=== PATIENT | female | born 1965 | race Caucasian/White ===

== ENCOUNTER 2024-05-22 10:48 | Emergency (ER) | payer MEDICARE, SELFPAY ==
[2024-05-22] VITALS (20 sets, daily range): BP systolic 97–143; BP diastolic 75–85; PULSE 92–108; TEMP 37; O2SAT 73–99; BMI 27.2
--- NOTE | 2024-05-22 11:07 | ED.CHESTPAI1 ---
HPI - Chest Pain General Chief Complaint: Chest Pain Stated Complaint: CHEST PAIN Time Seen by Provider: 05/22/24 10:57 Source: patient Mode of arrival: walk-in Limitations: no limitations History of Present Illness HPI narrative: This patient is here complaining of discomfort in her chest. She is a good historian. She is visiting this area but was planning on returning to [facility] today with her family. She has been having what she calls sharp stabbing chest discomfort today starting at 9:00. She says it lasts a few seconds to a few minutes and that goes away on its own. She said 2 episodes today. First episode occurred while she was waking up in bed. She has also had several of these spells over the last several days. In fact she went and saw her primary care doctor who wants her to get the Holter monitor. Risk factors are negative for hypertension diabetes or elevation of her cholesterol. She has not had previous cardiovascular disease. 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 She has had 7 surgical procedures including gamma knife. She has been doing very well in that regard. She also received chemotherapy this last past summer and radiation therapy this summer as well. She does not have any headache or fever or shakes or chills no influenza type symptoms. She does have heavy use of tobacco products and has not been able to quit. Incidentally with the lung cancer they said they have never been able to find the cancer in her lungs but when they did biopsy of her brain it was indeed a lung cancer that metastasized to her brain. She has not had any purulent sputum or bloody sputum. She has not had syncopal episodes. The sharp stabbing episodes are always self-limiting and they are never sustained with heaviness or pressure rating up to the neck jaw and arm all this is negative. Related Data Home Medications ?Medication ?Instructions ?Recorded ?Confirmed furosemide 20 mg tablet (Lasix) 20 mg PO DAILY 05/22/24 05/22/24 oxycodone 20 mg tablet 20 mg PO Q3H PRN pain 05/22/24 05/22/24 prednisone 1 mg tablet 1 mg PO DAILY 05/22/24 05/22/24 Allergies Allergy/AdvReac Type Severity Reaction Status Date / Time Penicillins Allergy Mild Rash Verified 05/22/24 10:54 gabapentin AdvReac Mild muscle Verified 05/22/24 10:54 jerking levofloxacin [From Levaquin] AdvReac Mild cramps Verified 05/22/24 10:54 PFSH PFSH Social History Little interest or pleasure in doing things: not at all Feeling down, depressed, or hopeless: not at all Exam Narrative Exam Narrative: This patient is awake alert here with several other women I believe. She does not extremis. She is not toxic or anxious in appearance. Her pulse oximetry is 93%. Cognition and mentation are normal she is a very pleasant and good historian. Her lungs were completely clear with no wheeze rales or rhonchi. There is no pleural or pericardial rub. She did have prolonged exhalation. Heart sounds are normal with no S3-S4 or murmur. She has no carotid bruits. Her extremities do not show any evidence of failure. There is no edema there is no cellulitis no swelling or tenderness. Rest examination is unremarkable. Constitutional Vital Signs, click to edit/add: Last Vital Signs Temp 98.6 F 05/22/24 10:54 Pulse 102 H 05/22/24 13:40 Resp 19 05/22/24 13:40 BP 104/75 05/22/24 13:30 Pulse Ox 93 L 05/22/24 13:40 O2 Del Method Room Air 05/22/24 10:54 Course Vital Signs Vital signs: Vital Signs Temperature 98.6 F 05/22/24 10:54 Pulse Rate 95 H 05/22/24 10:54 Respiratory Rate 18 05/22/24 10:54 Blood Pressure 113/79 05/22/24 10:54 Pulse Oximetry 98 05/22/24 10:54 Oxygen Delivery Method Room Air 05/22/24 10:54 Temperature 98.6 F 05/22/24 10:54 Pulse Rate 102 H 05/22/24 13:40 Respiratory Rate 19 05/22/24 13:40 Blood Pressure 104/75 05/22/24 13:30 Pulse Oximetry 93 L 05/22/24 13:40 Oxygen Delivery Method Room Air 05/22/24 10:54 MDM - Chest Pain MDM Narrative Medical decision making narrative: 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 She has brief sharp stabbing episodes of discomfort. No real risk factors for coronary disease except tobacco usage. She has 2 negative troponins. Her EKG is unremarkable. Not surprisingly in lieu of her history, her D-dimer is elevated so as a precaution we did a CTA of her chest. It is negative for any acute findings per the radiologist. It is consistent with emphysema. I believe she should follow-up with her primary care doctor I do not believe she has an acute coronary syndrome. No evidence of arrhythmia today but that should be ruled out. Lab Data Labs: Lab Results 05/22/24 05/22/24 Range/Units 11:16 12:57 WBC 8.9 (4.0-11.0) 10^3/uL RBC 3.66 L (4.20-5.40) 10^6/uL Hgb 11.4 L (12.0-16.0) g/dL Hct 36.6 (36.0-48.0) % MCV 100.0 H (81.0-99.0) fL MCH 31.1 (26.7-34.0) pg MCHC 31.1 (29.9-35.2) g/dL RDW 13.2 (11.0-15.0) % Plt Count 369 (150-450) 10^3/uL MPV 9.2 L (9.5-13.5) fL Neut % (Auto) 70.6 (43.0-75.0) % Lymph % (Auto) 16.3 L (20.5-60.0) % Jackson % (Auto) 7.5 (1.7-12.0) % Eos % (Auto) 4.6 (0.9-7.0) % Baso % (Auto) 0.9 (0.2-2.0) % Neut # (Auto) 6.3 (1.4-6.5) 10^3/uL Lymph # (Auto) 1.4 (1.2-3.8) 10^3/uL Jackson # (Auto) 0.7 (0.3-0.8) 10^3/uL Eos # (Auto) 0.4 (0.0-0.7) 10^3/uL Baso # (Auto) 0.1 (0.0-0.1) 10^3/uL Abs Immat Gran (auto) 0.01 (0.00-0.03) 10^3/uL Imm/Tot Granulo (auto) 0.1 (0.0-0.5) % D-Dimer 0.75 H* (<=0.59) mg/L FEU Sodium 137 (136-145) mmol/L Potassium 3.9 (3.5-5.1) mmol/L Chloride 102 (98-107) mmol/L Carbon Dioxide 29.2 (21.0-32.0) mmol/L Anion Gap 9.7 BUN 13.0 (7.0-18.0) mg/dL Creatinine 1.25 H (0.55-1.02) mg/dL Est GFR ( Amer) 53 L (>=60) Est GFR (Non-Af Amer) 44 L (>=60) BUN/Creatinine Ratio 10.4 Glucose 91 (74-106) mg/dL Calcium 8.9 (8.5-10.1) mg/dL Total Bilirubin 0.4 (0.2-1.0) mg/dL AST 12 L (15-37) U/L ALT 10 L (14-59) U/L Alkaline Phosphatase 124 H (46-116) U/L Troponin I High Sens <4.0 L 4.5 (4.0-51.3) pg/mL Total Protein 6.2 L (6.4-8.2) g/dL Albumin 2.4 L (3.4-5.0) g/dL Globulin 3.8 g/dL Albumin/Globulin Ratio 0.6 Discharge Plan Discharge Chief Complaint: Chest Pain Clinical Impression: Atypical chest pain Patient Disposition: Home, Self-Care Time of Disposition Decision: 14:57 Prescriptions / Home Meds: No Action oxycodone 20 mg tablet 20 mg PO Q3H PRN (Reason: pain) prednisone 1 mg tablet 1 mg PO DAILY furosemide [Lasix] 20 mg tablet 20 mg PO DAILY Print Language: [place]an Additional Instructions: Take copy of your lab EKG and CT scan and follow-up with your primary care doctor. Referrals: Physician,Non-Staff, MD [Primary Care Provider] - 1 week
--- NOTE | 2024-05-22 11:09 | XR_ITS ---
[address] [address] Patient Name: ROSALVA ARCOS MRN: [id number] date: 1965 Sex: F Assigned Patient Location: ER Current Patient Location: ER Accession/Order Number: [id number] Exam Date: 05/22/2024 11:34 Report Date: 05/22/2024 12:28 At the request of: EDNA SHELTON Procedure: XR chest 1V EXAM: XR chest 1V HISTORY: Chest pain COMPARISON: None. TECHNIQUE: Chest X-ray AP, 1 view FINDINGS: Support devices: Left jugular approach intravenous catheter terminates near the cavoatrial junction. Lungs/pleura: No consolidation, effusion, or pneumothorax. Heart and mediastinum: Normal contours. Bones: No acute abnormality identified. XR/XR chest 1V Impression: No radiographic evidence of acute cardiopulmonary process. Electronically authenticated by: LINUS WINTER Date: 05/22/2024 12:28
--- NOTE | 2024-05-22 11:09 | ECG_ITS ---
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
[2024-05-22 11:22] LABS: Basophils Absolute Auto 0.1 10^3/uL (0.0-0.1); Basophils Percent Auto 0.9 % (0.2-2.0); Eosinophils Absolute Auto 0.4 10^3/uL (0.0-0.7); Eosinophils Percent Auto 4.6 % (0.9-7.0); Hematocrit 36.6 % (36.0-48.0); Hemoglobin 11.4 g/dL (12.0-16.0); Immature Granulocytes Abs Auto 0.01 10^3/uL (0.00-0.03); Immature Granulocytes Pct Auto 0.1 % (0.0-0.5); Lymphocytes Absolute Auto 1.4 10^3/uL (1.2-3.8); Lymphocytes Percent Auto 16.3 % (20.5-60.0); Mean Corpuscular HGB Conc 31.1 g/dL (29.9-35.2); Mean Corpuscular Hemoglobin 31.1 pg (26.7-34.0); Mean Platelet Volume 9.2 fL (9.5-13.5); Monocytes Absolute Auto 0.7 10^3/uL (0.3-0.8); Monocytes Percent Auto 7.5 % (1.7-12.0); Neutrophils Absolute Auto 6.3 10^3/uL (1.4-6.5); Neutrophils Percent Auto 70.6 % (43.0-75.0); Platelet Count 369 10^3/uL (150-450); Red Blood Count 3.66 10^6/uL (4.20-5.40); Red Cell Distribution Width 13.2 % (11.0-15.0); White Blood Count 8.9 10^3/uL (4.0-11.0)
[2024-05-22 11:39] LABS: Alanine Aminotransferase 10 U/L (14-59); Albumin Globulin Ratio 0.6; Albumin Level 2.4 g/dL (3.4-5.0); Alkaline Phosphatase 124 U/L (46-116); Anion Gap 9.7; Aspartate Amino Transferase 12 U/L (15-37); BUN Creatinine Ratio 10.4; Bilirubin Total 0.4 mg/dL (0.2-1.0); Calcium 8.9 mg/dL (8.5-10.1); Carbon Dioxide 29.2 mmol/L (21.0-32.0); Chloride 102 mmol/L (98-107); Estimated GFR (African America 53 (>=60); Estimated GFR (Non-African Ame 44 (>=60); Globulin 3.8 g/dL; Glucose 91 mg/dL (74-106); Potassium 3.9 mmol/L (3.5-5.1); Sodium 137 mmol/L (136-145); Total Protein 6.2 g/dL (6.4-8.2); Troponin I High Sensitivity <4.0 pg/mL (4.0-51.3)
[2024-05-22 11:48] LABS: D Dimer 0.75 mg/L FEU (<=0.59)
--- NOTE | 2024-05-22 12:25 | CT_ITS ---
[address] [address] Patient Name: ROSALVA ARCOS MRN: [id number] date: 1965 Sex: F Assigned Patient Location: ER Current Patient Location: ER Accession/Order Number: [id number] Exam Date: 05/22/2024 13:18 Report Date: 05/22/2024 14:43 At the request of: EDNA SHELTON Procedure: CT angio chest EXAM: CT angio chest HISTORY: Cancer/elevated D-dimer/chest pain COMPARISON: None. TECHNIQUE: CT chest with intravenous contrast was performed with timing for the evaluation for pulmonary arteries. Multiplanar reformats were performed. MIP (maximum intensity projection) images or 3D post processing was performed. Dose reduction techniques were achieved by using automated exposure control and/or adjustment of mA and/or kV according to patient size and/or use of iterative reconstruction technique. FINDINGS: Lungs: Bilateral centrilobular emphysema. No consolidation, pneumothorax, or effusion. No suspicious pulmonary nodule or mass. Airways: Normal. Mediastinum: No adenopathy. Aorta: No aneurysm. Cardiac: Normal size. No pericardial effusion. Pulmonary vasculature: Diagnostic opacification of pulmonary arteries without evidence of pulmonary embolus. Normal morphology. Bones: No acute bony abnormality. Axilla: No adenopathy. Thyroid gland: No abnormality demonstrated on provided imaging. Soft tissues: Unremarkable. Upper abdomen: Unremarkable. Additional findings: None. CT/CT angio chest IMPRESSION: No evidence of pulmonary embolus or acute intrathoracic abnormality. Bilateral centrilobular emphysema. Electronically authenticated by: LINUS WINTER Date: 05/22/2024 14:43
[2024-05-22 13:19] LABS: Troponin I High Sensitivity 4.5 pg/mL (4.0-51.3)
== END 2024-05-22 15:12 | disposition home or self-care (01) ==
PROVIDERS: Emergency Provider Emergency Medicine Emergency Medical Services
DX: R07.89 Other chest pain (principal); Z85.118 Personal history of other malignant neoplasm of bronchus and lung; C79.31 Secondary malignant neoplasm of brain
CPT/HCPCS: 36415; 71045; 71275; 80053; 84484; 85025; 85378; 93005; 99285; Q9967